=== PATIENT | female | born 1980 | race Caucasian/White ===

== ENCOUNTER 2023-09-04 23:00 | Inpatient (IN) | payer MEDICAID ==
[2023-09-04] MEDS ORDERED: Ondansetron 4 MG/2 ML SDV IVPUSH PRN (23:56)
[2023-09-05] MEDS ORDERED: MVI, Adult with Vitamin K 10 ML in Sodium Chloride 0.9% 1,000 ML IV ONE ×2 (00:06)
[2023-09-05] MEDS ORDERED: Folic Acid 50 MG/10 ML MDV IV SCH ×2 (00:15→09:00)
[2023-09-05] MEDS ORDERED: Thiamine 100 MG in Sodium Chloride 0.9% 100 ML IV SCH (00:15)
[2023-09-05] MEDS ORDERED: Indocyanine Green 25 MG SDV IV ONE (00:36)
[2023-09-05 00:47] LABS: BASOPHILS ABSOLUTE AUTO 0.05 K/uL (0.00-0.10); BASOPHILS PERCENT AUTO 0.6 % (0.1-1.3); EOSINOPHILS ABSOLUTE AUTO 0.08 K/uL (0.00-0.40); HEMATOCRIT 29.7 % (34.3-46.0); HEMOGLOBIN 8.4 g/dL (11.2-15.5); IMMATURE GRAN ABSOLUTE AUTO 0.04 K/uL (0.00-0.23); IMMATURE GRAN PERCENT AUTO 0.5 % (0.0-0.7); LYMPHOCYTES ABSOLUTE AUTO 0.92 K/uL (0.8-3.3); LYMPHOCYTES PERCENT AUTO 11.4 % (11.4-47.7); MEAN CORPUSCULAR HEMOGLOBIN 19.4 pg (31.6-35.5); MEAN CORPUSCULAR HGB CONC 28.3 g/dL (31.6-35.5); MEAN CORPUSCULAR VOLUME 68.8 fL (81.4-99.0); MONOCYTES ABSOLUTE AUTO 0.35 K/uL (0.20-0.90); MONOCYTES PERCENT AUTO 4.3 % (3.3-12.6); NEUTROPHILS ABSOLUTE AUTO 6.64 K/uL (1.0-7.6); NEUTROPHILS PERCENT AUTO 82.2 % (40.0-78.1); PLATELET COUNT,PLT 242 K/uL (130-375); WHITE BLOOD CELL COUNT,WBC 8.1 K/uL (3.2-11.0)
[2023-09-05] MEDS: Pantoprazole 40 MG Vial IVPUSH SCH ×2 (01:00→20:31)
[2023-09-05] MEDS: Piperacillin/Tazobactam 3.375 GM in Sodium Chloride 0.9% 50 ML IV SCH ×2 (01:00→18:41)
[2023-09-05] MEDS: Acetaminophen 500 MG Tab PO SCH ×3 (01:00→18:30)
[2023-09-05] MEDS ORDERED: MVI, Adult with Vitamin K 10 ML, Folic Acid 1 MG, Thiamine 100 MG in Sodium Chloride 0.... IV ONE ×4 (01:15)
[2023-09-05 01:28] LABS: IRON,FE 7 ug/dL (50-170); PERCENT FE SATURATION 2 % (20-55); TOTAL IRON BINDING CAPACITY 393 ug/dl (250-450)
[2023-09-05 01:30] LABS: INR 1.4; PROTHROMBIN TIME 13.8 sec (9.2-10.6)
[2023-09-05 01:35] LABS: RED BLOOD CELL COUNT 4.32 M/uL (3.77-5.24)
[2023-09-05 01:40] LABS: A/G RATIO 0.8 (1.2-2.2); ALANINE AMINOTRANSFERASE,ALT 14 U/L (12-78); ALBUMIN 2.4 g/dL (3.4-5.0); ALKALINE PHOSPHATASE 64 U/L (46-116); ASPARTATE AMNIOTRANSFERASE,AST 17 U/L (15-37); BILIRUBIN TOTAL 0.4 mg/dL (0.2-1.0); BLOOD UREA NITROGEN,BUN 10 mg/dL (7-18); CALCIUM 7.6 mg/dL (8.5-10.1); CARBON DIOXIDE,CO2 23 mmol/L (21-32); CHLORIDE,CL 106 mmol/L (100-108); CREATININE 0.6 mg/dL (0.6-1.0); EST CRCL DRUG DOSING (CG) 85.94 mL/min; ESTIMATED GFR 113 mL/min (>60); FERRITIN 23 ng/ml (8-388); GLUCOSE RANDOM 85 mg/dL (74-106); MAGNESIUM 1.5 mg/dL (1.8-2.4); PHOSPHORUS 2.9 mg/dL (2.5-4.9); POTASSIUM,K 3.2 mmol/L (3.6-5.2); PROTEIN TOTAL,TP 5.5 g/dL (6.4-8.2); SODIUM,NA 135 mmol/L (140-148)
[2023-09-05 01:43] LABS: ANION GAP 9.2 mmol/L (5.0-14.0)
[2023-09-05] MEDS ORDERED: Sodium Ferric Gluconate Cmplex 250 MG in Sodium Chloride 0.9% 100 ML IV ONE ×2 (01:47→10:00)
[2023-09-05] MEDS ORDERED: Magnesium Sulfate/Water 2 GM in Premix Bag 1 BAG IV ONE (01:47)
[2023-09-05] MEDS ORDERED: fentaNYL 250 MCG/5 ML SDV ONE (01:55)
[2023-09-05] MEDS ORDERED: Glycopyrrolate 0.2 MG/ML 5 ML MDV ONE (01:55)
[2023-09-05] MEDS ORDERED: Rocuronium 50 MG/5 ML Vial ONE (01:55)
[2023-09-05] MEDS ORDERED: Ondansetron 4 MG/2 ML SDV ONE (01:55)
[2023-09-05] MEDS ORDERED: Propofol 200 MG/20 ML SDV ONE (01:55)
[2023-09-05] MEDS ORDERED: Neostigmine Methylsulfate 10 MG/10 ML MDV ONE (01:55)
[2023-09-05] MEDS ORDERED: Dexamethasone 4 MG/ML SDV ONE (01:55)
[2023-09-05] MEDS: Potassium Chloride 10 MEQ in Premix Bag 1 BAG IV SCH ×4 (02:17→11:11)
[2023-09-05] MEDS ORDERED: Bupivacaine 0.5%/EPINEPHrine 1:200,000 50 ML MDV ONE (02:17)
[2023-09-05] MEDS ORDERED: Sodium Chloride 0.9% 10 ML ONE (03:17)
[2023-09-05] MEDS ORDERED: fentaNYL 100 MCG/2 ML SDV ONE (05:28)
[2023-09-05] MEDS: Piperacillin/Tazobactam/Dext 3.375 GM in Premix Bag 1 BAG IV SCH ×3 (07:32→18:31)
[2023-09-05] MEDS: HYDROmorphone 0.5 MG/0.5 ML Syringe IVPUSH PRN ×4 (07:38→22:44)
[2023-09-05 07:41] LABS: HEMATOCRIT 27.5 % (34.3-46.0); HEMOGLOBIN 7.7 g/dL (11.2-15.5); MEAN CORPUSCULAR HEMOGLOBIN 19.3 pg (31.6-35.5); MEAN CORPUSCULAR VOLUME 68.9 fL (81.4-99.0); RED BLOOD CELL COUNT 3.99 M/uL (3.77-5.24); WHITE BLOOD CELL COUNT,WBC 8.6 K/uL (3.2-11.0)
[2023-09-05 07:58] LABS: INR 1.3; PROTHROMBIN TIME 13.2 sec (9.2-10.6)
[2023-09-05 08:01] LABS: A/G RATIO 0.7 (1.2-2.2); ALANINE AMINOTRANSFERASE,ALT 14 U/L (12-78); ALBUMIN 2.2 g/dL (3.4-5.0); ALKALINE PHOSPHATASE 69 U/L (46-116); ASPARTATE AMNIOTRANSFERASE,AST 19 U/L (15-37); BILIRUBIN TOTAL 0.3 mg/dL (0.2-1.0); BLOOD UREA NITROGEN,BUN 10 mg/dL (7-18); CALCIUM 7.6 mg/dL (8.5-10.1); CARBON DIOXIDE,CO2 23 mmol/L (21-32); CHLORIDE,CL 107 mmol/L (100-108); CREATININE 0.5 mg/dL (0.6-1.0); EST CRCL DRUG DOSING (CG) 103.13 mL/min; ESTIMATED GFR 119 mL/min (>60); GLUCOSE RANDOM 104 mg/dL (74-106); MAGNESIUM 2.2 mg/dL (1.8-2.4); PHOSPHORUS 3.6 mg/dL (2.5-4.9); POTASSIUM,K 3.7 mmol/L (3.6-5.2); PROTEIN TOTAL,TP 5.3 g/dL (6.4-8.2); SODIUM,NA 135 mmol/L (140-148)
[2023-09-05 08:02] LABS: ANION GAP 8.7 mmol/L (5.0-14.0)
[2023-09-05] MEDS: Thiamine 100 MG in Sodium Chloride 0.9% 100 ML IV SCH (08:38)
[2023-09-05] MEDS: Folic Acid 1 MG in Sodium Chloride 0.9% 50 ML IV SCH (08:41)
[2023-09-05] MEDS: Lactated Ringers 1,000 ML IV SCH ×2 (14:12→22:44)
[2023-09-05] MEDS ORDERED: buPROPion 150 MG Tab.SR PO SCH (21:00)
[2023-09-05] MEDS: Diazepam 2 MG Tab PO PRN (21:28)
[2023-09-06] MEDS: Piperacillin/Tazobactam/Dext 3.375 GM in Premix Bag 1 BAG IV SCH ×4 (00:05→18:01)
[2023-09-06] MEDS: Acetaminophen 500 MG Tab PO SCH ×4 (00:05→23:00)
[2023-09-06 04:54] LABS: HEMATOCRIT 25.6 % (34.3-46.0); HEMOGLOBIN 7.1 g/dL (11.2-15.5); MEAN CORPUSCULAR HEMOGLOBIN 19.5 pg (31.6-35.5); MEAN CORPUSCULAR HGB CONC 27.7 g/dL (31.6-35.5); MEAN CORPUSCULAR VOLUME 70.3 fL (81.4-99.0); RED BLOOD CELL COUNT 3.64 M/uL (3.77-5.24)
[2023-09-06 05:13] LABS: INR 1.1; PROTHROMBIN TIME 11.3 sec (9.2-10.6)
[2023-09-06 05:16] LABS: A/G RATIO 0.7 (1.2-2.2); ALANINE AMINOTRANSFERASE,ALT 12 U/L (12-78); ALKALINE PHOSPHATASE 57 U/L (46-116); ASPARTATE AMNIOTRANSFERASE,AST 19 U/L (15-37); BILIRUBIN TOTAL 0.2 mg/dL (0.2-1.0); BLOOD UREA NITROGEN,BUN 12 mg/dL (7-18); CALCIUM 7.9 mg/dL (8.5-10.1); CARBON DIOXIDE,CO2 22 mmol/L (21-32); CHLORIDE,CL 105 mmol/L (100-108); CREATININE 0.6 mg/dL (0.6-1.0); EST CRCL DRUG DOSING (CG) 85.94 mL/min; ESTIMATED GFR 113 mL/min (>60); GLUCOSE RANDOM 59 mg/dL (74-106); MAGNESIUM 1.9 mg/dL (1.8-2.4); SODIUM,NA 137 mmol/L (140-148)
[2023-09-06] MEDS: HYDROmorphone 0.5 MG/0.5 ML Syringe IVPUSH PRN ×5 (05:37→22:38)
[2023-09-06] MEDS: Lactated Ringers 1,000 ML IV SCH (07:44)
[2023-09-06] MEDS: Folic Acid 1 MG in Sodium Chloride 0.9% 50 ML IV SCH (08:33)
[2023-09-06] MEDS ORDERED: LISDEXAMFETAMINE 50 MG PO SCH (09:00)
[2023-09-06] MEDS ORDERED: Non-Formulary Medication 1 Each (Amphetamine Sulfate [Amphetamine Sulfate] 10 MG Tablet) PO SCH (09:00)
[2023-09-06] MEDS ORDERED: Dextrose 5%-Lactated Ringers 1,000 ML IV SCH (09:00)
[2023-09-06] MEDS: Thiamine 100 MG in Sodium Chloride 0.9% 100 ML IV SCH (09:09)
[2023-09-06] MEDS: Sodium Ferric Gluconate Cmplex 250 MG in Sodium Chloride 0.9% 100 ML IV SCH (10:13)
[2023-09-06] MEDS: Diazepam 2 MG Tab PO PRN (10:26)
[2023-09-06] MEDS: Amphetamine/Dextroamphetamine Salts 10 MG Tab PO SCH (13:43)
[2023-09-06] MEDS: buPROPion 150 MG Tab.ER PO SCH (13:43)
[2023-09-06] MEDS ORDERED: Albuterol 0.083% 2.5 MG/3 ML Neb Soln NEB PRN (13:44)
[2023-09-06] MEDS ORDERED: buPROPion 150 MG Tab.ER PO SCH (13:45)
[2023-09-06] MEDS ORDERED: Lactated Ringers 1,000 ML IV SCH (14:00)
[2023-09-06 15:49] LABS: PREALBUMIN 15.1 mg/dL (20.0-40.0)
[2023-09-06] MEDS ORDERED: Fat Emulsion 100 ML IV ONE (16:00)
[2023-09-06] MEDS ORDERED: Amphetamine/Dextroamphetamine Salts 10 MG Tab PO SCH (16:00)
[2023-09-06] MEDS: 1: AA 5%/Calcium/D15W/Lytes 1,000 ML with MVI, Adult with Vitamin K 10 ML, Zinc/Copper/M IV SCH ×3 (16:27)
[2023-09-06 18:53] LABS: COPPER,SERUM/PLASMA 81.1 ug/dL (80.0-155.0); SELENIUM, SERUM/PLASMA 85.3 ug/L (23.0-190.0); ZINC,SERUM/PLASMA 31.4 ug/dL (60.0-120.0)
[2023-09-06 20:47] LABS: VITAMIN D,1,25-DIHYDROXY 28.9 pg/mL (19.9-79.3)
[2023-09-06] MEDS: Pantoprazole 40 MG Vial IVPUSH SCH (20:56)
[2023-09-06] MEDS: Zolpidem 5 MG Tab PO PRN (22:38)
[2023-09-07] MEDS: Piperacillin/Tazobactam/Dext 3.375 GM in Premix Bag 1 BAG IV SCH ×5 (00:59→23:30)
[2023-09-07 05:11] LABS: HEMATOCRIT 25.5 % (34.3-46.0); HEMOGLOBIN 7.3 g/dL (11.2-15.5); MEAN CORPUSCULAR HEMOGLOBIN 19.8 pg (31.6-35.5); MEAN CORPUSCULAR HGB CONC 28.6 g/dL (31.6-35.5); MEAN CORPUSCULAR VOLUME 69.1 fL (81.4-99.0); WHITE BLOOD CELL COUNT,WBC 5.3 K/uL (3.2-11.0)
[2023-09-07 05:25] LABS: RED BLOOD CELL COUNT 3.69 M/uL (3.77-5.24)
[2023-09-07 05:35] LABS: A/G RATIO 0.6 (1.2-2.2); ALANINE AMINOTRANSFERASE,ALT 11 U/L (12-78); ALBUMIN 1.9 g/dL (3.4-5.0); ALKALINE PHOSPHATASE 58 U/L (46-116); ASPARTATE AMNIOTRANSFERASE,AST 15 U/L (15-37); BILIRUBIN TOTAL 0.1 mg/dL (0.2-1.0); BLOOD UREA NITROGEN,BUN 7 mg/dL (7-18); CALCIUM 7.7 mg/dL (8.5-10.1); CARBON DIOXIDE,CO2 25 mmol/L (21-32); CHLORIDE,CL 107 mmol/L (100-108); CREATININE 0.5 mg/dL (0.6-1.0); EST CRCL DRUG DOSING (CG) 103.13 mL/min; ESTIMATED GFR 119 mL/min (>60); GLUCOSE RANDOM 111 mg/dL (74-106); MAGNESIUM 1.6 mg/dL (1.8-2.4); PHOSPHORUS 3.1 mg/dL (2.5-4.9); POTASSIUM,K 3.2 mmol/L (3.6-5.2); PROTEIN TOTAL,TP 5.1 g/dL (6.4-8.2); SODIUM,NA 138 mmol/L (140-148); TRIGLYCERIDES 83 mg/dL (15-150)
[2023-09-07 05:37] LABS: ANION GAP 9.2 mmol/L (5.0-14.0)
[2023-09-07] MEDS: HYDROmorphone 0.5 MG/0.5 ML Syringe IVPUSH PRN ×5 (05:38→22:42)
[2023-09-07] MEDS: 1: AA 5%/Calcium/D15W/Lytes 1,000 ML with MVI, Adult with Vitamin K 10 ML, Zinc/Copper/M IV SCH ×6 (05:41→20:54)
[2023-09-07] MEDS ORDERED: Potassium Chloride 20 MEQ Tab.ER PO ONE (08:15)
[2023-09-07] MEDS: Acetaminophen 500 MG Tab PO SCH ×3 (09:02→23:26)
[2023-09-07] MEDS: Magnesium Sulfate/Water 2 GM in Premix Bag 1 BAG IV SCH ×2 (09:03→14:02)
[2023-09-07] MEDS: buPROPion 150 MG Tab.ER PO SCH (09:09)
[2023-09-07] MEDS: Amphetamine/Dextroamphetamine Salts 10 MG Tab PO SCH ×2 (09:16→17:07)
[2023-09-07] MEDS: Folic Acid 1 MG Tab PO SCH (10:55)
[2023-09-07] MEDS: Thiamine 100 MG Tab PO SCH (10:55)
[2023-09-07] MEDS: Sodium Ferric Gluconate Cmplex 250 MG in Sodium Chloride 0.9% 100 ML IV SCH (11:02)
[2023-09-07] MEDS: Amphetamine/Dextroamphetamine Salts 10 MG Cap.ER PO SCH (12:58)
[2023-09-07] MEDS ORDERED: Fat Emulsion 100 ML IV ONE (16:00)
[2023-09-07] MEDS: Diazepam 2 MG Tab PO PRN (20:53)
[2023-09-07] MEDS: Pantoprazole 40 MG Vial IVPUSH SCH (20:54)
[2023-09-07] MEDS: Zolpidem 5 MG Tab PO PRN (22:42)
[2023-09-08] MEDS: HYDROmorphone 0.5 MG/0.5 ML Syringe IVPUSH PRN ×2 (03:24→08:32)
[2023-09-08 04:46] LABS: CALCIUM 7.7 mg/dL (8.5-10.1); CREATININE 0.5 mg/dL (0.6-1.0); EST CRCL DRUG DOSING (CG) 103.13 mL/min; MAGNESIUM 2.1 mg/dL (1.8-2.4); PHOSPHORUS 3.9 mg/dL (2.5-4.9); POTASSIUM,K 3.2 mmol/L (3.6-5.2)
[2023-09-08 04:49] LABS: ANION GAP 9.2 mmol/L (5.0-14.0)
[2023-09-08 04:50] LABS: HEMATOCRIT 25.7 % (34.3-46.0); HEMOGLOBIN 7.2 g/dL (11.2-15.5); MEAN CORPUSCULAR HEMOGLOBIN 19.6 pg (31.6-35.5); RED BLOOD CELL COUNT 3.67 M/uL (3.77-5.24); WHITE BLOOD CELL COUNT,WBC 4.4 K/uL (3.2-11.0)
[2023-09-08] MEDS: Piperacillin/Tazobactam/Dext 3.375 GM in Premix Bag 1 BAG IV SCH ×3 (06:00→18:00)
[2023-09-08] MEDS ORDERED: Potassium Chloride 20 MEQ Tab.ER PO ONE (08:00)
[2023-09-08] MEDS: Acetaminophen 500 MG Tab PO SCH ×2 (08:10→16:06)
[2023-09-08] MEDS: buPROPion 150 MG Tab.ER PO SCH ×2 (08:10→08:15)
[2023-09-08] MEDS: Thiamine 100 MG Tab PO SCH (08:10)
[2023-09-08] MEDS: Folic Acid 1 MG Tab PO SCH (08:10)
[2023-09-08] MEDS: Amphetamine/Dextroamphetamine Salts 10 MG Tab PO SCH ×3 (08:11→16:00)
[2023-09-08] MEDS: Amphetamine/Dextroamphetamine Salts 10 MG Cap.ER PO SCH (09:38)
[2023-09-08 10:06] LABS: VITAMIN A (RETINOL) 0.23 mg/L (0.30-1.20); VITAMIN A (RETINYL PALMITATE) <0.02 mg/L (0.00-0.10); VITAMIN E (ALPHA-TOCOPHEROL) 3.2 mg/L (5.5-18.0); VITAMIN E (GAMMA-TOCOPHEROL) 0.4 mg/L (0.0-6.0)
[2023-09-08] MEDS ORDERED: Central Total Parenteral Nutrition Bag SCH (10:15)
[2023-09-08 10:26] LABS: VITAMIN B6 PYRIDOXAL 5-PHOSPH 6.6 nmol/L (20.0-125.0)
[2023-09-08] MEDS: 1: AA 5%/Calcium/D15W/Lytes 1,000 ML with MVI, Adult with Vitamin K 10 ML, Zinc/Copper/M IV SCH ×3 (11:20)
[2023-09-08] MEDS: HYDROmorphone 2 MG Tab PO PRN ×3 (12:30→20:48)
[2023-09-08 12:38] LABS: VITAMIN K1 0.14 nmol/L (0.22-4.88)
[2023-09-08] MEDS ORDERED: Fat Emulsion 100 ML IV ONE (16:00)
[2023-09-08] MEDS ORDERED: Potassium Chloride 10% 20 MEQ/15 ML Soln 15 ML UD Cup PO ONE (17:00)
[2023-09-08] MEDS: Diazepam 2 MG Tab PO PRN (20:48)
[2023-09-08] MEDS: Zolpidem 5 MG Tab PO PRN (20:53)
[2023-09-08] MEDS: Pantoprazole 40 MG Delayed-Release Granules 1 Packet PO SCH (20:54)
[2023-09-09] MEDS: Acetaminophen 500 MG Tab PO SCH ×3 (00:44→16:09)
[2023-09-09] MEDS: Piperacillin/Tazobactam/Dext 3.375 GM in Premix Bag 1 BAG IV SCH ×2 (00:44→06:11)
[2023-09-09] MEDS: HYDROmorphone 2 MG Tab PO PRN ×6 (00:45→20:09)
[2023-09-09] MEDS: 1: AA 5%/Calcium/D15W/Lytes 1,000 ML with MVI, Adult with Vitamin K 10 ML, Zinc/Copper/M IV SCH ×3 (01:50)
[2023-09-09 04:32] LABS: HEMATOCRIT 28.2 % (34.3-46.0); MEAN CORPUSCULAR HGB CONC 28.4 g/dL (31.6-35.5); MEAN CORPUSCULAR VOLUME 70.5 fL (81.4-99.0); WHITE BLOOD CELL COUNT,WBC 5.4 K/uL (3.2-11.0)
[2023-09-09 04:50] LABS: CALCIUM 8.1 mg/dL (8.5-10.1); CREATININE 0.5 mg/dL (0.6-1.0); EST CRCL DRUG DOSING (CG) 103.13 mL/min; MAGNESIUM 1.9 mg/dL (1.8-2.4); PHOSPHORUS 4.3 mg/dL (2.5-4.9); POTASSIUM,K 4.1 mmol/L (3.6-5.2)
[2023-09-09 05:12] LABS: ANION GAP 10.1 mmol/L (5.0-14.0)
[2023-09-09 05:28] LABS: VITAMIN B1,WHOLE BLOOD 159 nmol/L (70-180)
[2023-09-09] MEDS ORDERED: Amphetamine/Dextroamphetamine Salts 10 MG Tab PO SCH ×2 (07:30→10:00)
[2023-09-09] MEDS: Amphetamine/Dextroamphetamine Salts 10 MG Tab PO SCH ×2 (07:44→13:18)
[2023-09-09] MEDS: Amphetamine/Dextroamphetamine Salts 10 MG Cap.ER PO SCH (08:20)
[2023-09-09] MEDS: Enoxaparin 40 MG/0.4 ML Syringe SUBCUT SCH (08:56)
[2023-09-09] MEDS: Folic Acid 1 MG Tab PO SCH (08:57)
[2023-09-09] MEDS: Thiamine 100 MG Tab PO SCH (08:57)
[2023-09-09] MEDS: buPROPion 150 MG Tab.ER PO SCH (08:57)
[2023-09-09 10:16] LABS: A/G RATIO 0.6 (1.2-2.2); ALBUMIN 2.2 g/dL (3.4-5.0); PROTEIN TOTAL,TP 5.9 g/dL (6.4-8.2)
[2023-09-09 10:17] LABS: ALANINE AMINOTRANSFERASE,ALT 13 U/L (12-78); ALKALINE PHOSPHATASE 70 U/L (46-116); ASPARTATE AMNIOTRANSFERASE,AST 13 U/L (15-37); BILIRUBIN DIRECT 0.02 mg/dL (0.0-0.2); BILIRUBIN TOTAL 0.1 mg/dL (0.2-1.0)
[2023-09-09] MEDS ORDERED: Piperacillin/Tazobactam 3.375 GM in Sodium Chloride 0.9% 50 ML IV ONE (12:00)
[2023-09-09] MEDS: Amoxicillin/Clavulanate K 875-125 MG Tab PO SCH (17:24)
[2023-09-09] MEDS: Diazepam 2 MG Tab PO PRN (17:28)
[2023-09-09] MEDS: Zolpidem 5 MG Tab PO PRN (20:10)
[2023-09-09] MEDS: Pantoprazole 40 MG Delayed-Release Granules 1 Packet PO SCH (20:10)
[2023-09-09] MEDS ORDERED: Multivitamins with Iron Tab.Chew CHEW SCH (21:00)
[2023-09-10] MEDS: Acetaminophen 500 MG Tab PO SCH ×3 (00:08→15:37)
[2023-09-10] MEDS: HYDROmorphone 2 MG Tab PO PRN ×7 (00:10→18:19)
[2023-09-10] MEDS: Amoxicillin/Clavulanate K 875-125 MG Tab PO SCH ×2 (05:18→17:46)
[2023-09-10 05:32] LABS: CALCIUM 8.6 mg/dL (8.5-10.1); CREATININE 0.5 mg/dL (0.6-1.0); EST CRCL DRUG DOSING (CG) 103.13 mL/min; MAGNESIUM 1.9 mg/dL (1.8-2.4); PHOSPHORUS 4.8 mg/dL (2.5-4.9); POTASSIUM,K 4.1 mmol/L (3.6-5.2)
[2023-09-10 05:48] LABS: ANION GAP 11.1 mmol/L (5.0-14.0)
[2023-09-10 07:03] LABS: HEMATOCRIT 30.7 % (34.3-46.0); HEMOGLOBIN 8.5 g/dL (11.2-15.5); MEAN CORPUSCULAR HGB CONC 27.7 g/dL (31.6-35.5); MEAN CORPUSCULAR VOLUME 72.4 fL (81.4-99.0); RED BLOOD CELL COUNT 4.24 M/uL (3.77-5.24)
[2023-09-10] MEDS: Amphetamine/Dextroamphetamine Salts 10 MG Tab PO SCH ×3 (07:12→13:23)
[2023-09-10] MEDS: Diazepam 2 MG Tab PO PRN (07:13)
[2023-09-10] MEDS: Amphetamine/Dextroamphetamine Salts 10 MG Cap.ER PO SCH (07:13)
[2023-09-10] MEDS: Folic Acid 1 MG Tab PO SCH (08:38)
[2023-09-10] MEDS: Thiamine 100 MG Tab PO SCH (08:38)
[2023-09-10] MEDS: Enoxaparin 40 MG/0.4 ML Syringe SUBCUT SCH (08:38)
[2023-09-10] MEDS: buPROPion 150 MG Tab.ER PO SCH (08:53)
[2023-09-10 15:42] LABS: VITAMIN C, PLASMA <5 umol/L (23-114)
[2023-09-12 08:17] LABS: NICOTINAMIDE None Det ng/mL; NICOTINIC ACID None Det ng/mL
== END 2023-09-10 18:39 | disposition home or self-care (01) | DRG 329 ==
LOC: JP.ICU 23:00
PROVIDERS: ADMIT Student in an Organized Health Care Education/Training Program; ATTEND Student in an Organized Health Care Education/Training Program
PROC: 8E0W4CZ Robotic Assisted Procedure of Trunk Region, Percutaneous Endoscopic Approach (ICD-10-PCS; 2023-09-05)
PROC: 0DB94ZX Excision of Duodenum, Percutaneous Endoscopic Approach, Diagnostic (ICD-10-PCS; 2023-09-05)
PROC: 3E0336Z Introduction of Nutritional Substance into Peripheral Vein, Percutaneous Approach (ICD-10-PCS; 2023-09-05)
PROC: 0DU947Z Supplement Duodenum with Autologous Tissue Substitute, Percutaneous Endoscopic Approach (ICD-10-PCS; principal; 2023-09-05 02:00)
DX: K26.5 Chronic or unspecified duodenal ulcer with perforation (principal); E43 Unspecified severe protein-calorie malnutrition; K65.3 Choleperitonitis; J45.909 Unspecified asthma, uncomplicated; F41.9 Anxiety disorder, unspecified; F32.A Depression, unspecified; D64.9 Anemia, unspecified; D50.9 Iron deficiency anemia, unspecified; J43.9 Emphysema, unspecified; E87.6 Hypokalemia; F90.9 Attention-deficit hyperactivity disorder, unspecified type; E83.42 Hypomagnesemia; Z98.84 Bariatric surgery status; Z79.899 Other long term (current) drug therapy; Z90.89 Acquired absence of other organs; Z98.890 Other specified postprocedural states; Z68.29 Body mass index [BMI] 29.0-29.9, adult
CPT/HCPCS: 36415; 80048; 80053; 80076; 82180; 82525; 82607; 82652; 82728; 82746; 82947; 83550; 83605; 83690; 83735; 84100; 84134; 84207; 84255; 84425; 84446; 84478; 84590; 84591; 84597; 84630; 85018; 85025; 85027; 85610; 86850; 86900; 86901; 88305; 88342; 93005; 93010; 99232; A9270-GY; C1751; C9113; J1100; J1170; J1650; J2405; J2543; J2704; J2710; J2916; J3010; J3411; J3475; J3480; J3490; J7030; J7120